=== PATIENT | female | born 1965 | race African-American/Black ===

== ENCOUNTER → 2017-05-27 | Outpatient (CLI) | payer MEDICAID | END | disposition home or self-care (01) | LOC: CARD 10:25 | PROVIDERS: ATTEND Family Medicine | DX: R29.898 Other symptoms and signs involving the musculoskeletal system (principal) | CPT/HCPCS: 95885; 95908 ==

== ENCOUNTER 2020-05-21 17:14 | Emergency (ER) | payer MEDICAID ==
[~2020-05-21] VITALS: Ht 162.6 cm; Wt 93.0 kg
[2020-05-21] MEDS ORDERED: OXYcodone/APAP 7.5/325MG TABLET ONE (19:52)
[2020-05-21 19:56] VITALS: BP 168/72
[2020-05-21] MEDS ORDERED: OXYcodone/APAP 7.5/325MG TABLET PO ONE (20:00)
== END 2020-05-21 20:36 | disposition home or self-care (01) ==
LOC: ED 19:55
DX: S83.92XA Sprain of unspecified site of left knee, initial encounter (principal); S39.012A Strain of muscle, fascia and tendon of lower back, initial encounter; M25.562 Pain in left knee; Z90.49 Acquired absence of other specified parts of digestive tract; X58.XXXA Exposure to other specified factors, initial encounter; Y93.89 Activity, other specified; Y92.89 Other specified places as the place of occurrence of the external cause; Y99.8 Other external cause status
CPT/HCPCS: 29505; 72110; 99284

== ENCOUNTER 2020-06-12 13:27 | Emergency (ER) | payer MEDICAID ==
[~2020-06-12] VITALS: Ht 162.6 cm; Wt 93.0 kg
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
--- NOTE | 2020-06-12 14:09 | NUR ---
PT IN BED WITH NO SIGNS OR SYMPTOMS OF ACUTE DISTRESS NOTED RESPIRATIONS EVEN AND UNLABORED MD AT BEDSIDE TO ASSESS.
--- NOTE | 2020-06-12 14:14 | NUR ---
REPORT RECEIVED, CARE ASSUMED.
[2020-06-12] MEDS ORDERED: HYDROcodone/APAP 5/325 TABLET ONE (14:16)
[2020-06-12] MEDS ORDERED: ONDANSETRON ODT 4 MG ONE (14:20)
--- NOTE | 2020-06-12 14:22 | NUR ---
PT MEDICATED FOR 9/10 PAIN ORDERED. PT WITH C/O "NAUSEA AND BEING HUNGRY" DISCUSSED WITH DR AMOS. ORDER FOR ZOFRAN RECEIVED. PT UPDATED ON POC, IE: TESTING. UNDERSTANDING VERBALIZED. NO OTHER NEEDS EXPRESSED AT THIS TIME.
--- NOTE | 2020-06-12 14:27 | NUR ---
Kamar armando in [facility] - 06/12/20 at 1428 by CUAUHTEMOC REPORT RECEIVED FROM ENDOSCOPY NURSE. PT TO BE RETURNED TO ROOM.
[2020-06-12] MEDS ORDERED: HYDROcodone/APAP 5/325 TABLET PO PRN (14:30)
--- NOTE | 2020-06-12 14:36 | NUR ---
REPORT TO DALTON BRUSH
[2020-06-12] MEDS ORDERED: ACETAMINOPHEN 500 MG TABLET ONE (15:54)
--- NOTE | 2020-06-12 15:58 | NUR ---
pt complaining of 8/10 pain, medicated per emar. pt provided with water and crackers. She is watching tv and resting on the gurney.
[2020-06-12] MEDS ORDERED: CARV12.52 PO (16:00)
[2020-06-12] MEDS ORDERED: ONDANSETRON ODT 4 MG PO ONE (16:00)
[2020-06-12] MEDS ORDERED: ACETAMINOPHEN 500 MG TABLET PO ONE (16:00)
[2020-06-12] MEDS ORDERED: TRAZ-175 PO (16:01)
[2020-06-12] MEDS ORDERED: CITA20TA9 PO (16:02)
--- NOTE | 2020-06-12 16:04 | NUR ---
pt requested to speak with vp digital marketing social media and crm. Contacted Milana who advised she would come speak with the pt.
--- NOTE | 2020-06-12 16:23 | NUR ---
pt spoke with leon from social media senior associate. pt to be d/c
[2020-06-12 16:32] VITALS: BP 189/96
--- NOTE | 2020-06-12 16:33 | NUR ---
Patient/Caregiver given discharge instructions and they have confirmed that they understand the instructions. Patient ambulatory with steady gait.
== END 2020-06-12 16:35 | disposition home or self-care (01) ==
LOC: ED 14:30
DX: S09.90XA Unspecified injury of head, initial encounter (principal); R07.89 Other chest pain; M54.2 Cervicalgia; I10 Essential (primary) hypertension; Z90.49 Acquired absence of other specified parts of digestive tract; Y04.8XXA Assault by other bodily force, initial encounter; Y93.89 Activity, other specified; Y92.488 Other paved roadways as the place of occurrence of the external cause; Y99.8 Other external cause status
CPT/HCPCS: 70450; 71101; 72125; 99285; Q0162

== ENCOUNTER 2020-06-18 12:47 | Emergency (ER) | payer MEDICAID ==
[~2020-06-18] VITALS: Ht 167.6 cm; Wt 83.6 kg
[~2020-06-18 12:47] MED LIST: CARV12.52 PO; CITA20TA9 PO; TRAZ-175 PO
--- NOTE | 2020-06-18 14:11 | NUR ---
commission broker: pt from lobby to room 27
[2020-06-18 14:27] LABS: BASOPHILS % (AUTO) 1 % (0-1); EOSINOPHILS % (AUTO) 1 % (1-7); LYMPHOCYTES % (AUTO) 30 % (22-44); MEAN CORPUSCULAR HEMOGLOBIN 29.1 pg (27.0-34.8); MEAN CORPUSCULAR HGB CONC 32.3 g/dL (32.4-35.8); MEAN PLATELET VOLUME 9.1 fL (7.4-10.4); MONOCYTES % (AUTO) 6 % (2-9); NEUTROPHILS % (AUTO) 62 % (42-75); PLATELET COUNT 221 x10^3/uL (130-400); RED BLOOD COUNT 4.82 x10^6/uL (3.82-5.3); RED CELL DISTRIBUTION WIDTH 15.3 % (9.6-15.2)
[2020-06-18 14:29] LABS: MD NO
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
[2020-06-18 14:39] LABS: ALBUMIN 3.5 g/dL (3.4-5.0); ANION GAP 5 mmol/L (5-15); CALCIUM 9.1 mg/dL (8.5-10.1); CHLORIDE 107 mmol/L (98-107)
[2020-06-18 14:47] LABS: CREATININE 0.71 mg/dL (0.55-1.02); TROPONIN I < 0.015 ng/mL (0.000-0.045)
[2020-06-18] MEDS ORDERED: ACETAMINOPHEN 500 MG TABLET PO ONE (15:30)
[2020-06-18 16:13] VITALS: BP 182/76
--- NOTE | 2020-06-18 16:15 | NUR ---
pt walked out self with steady gait. discuess rx, pt refused tylenol. if s&s worsen return to the er
== END 2020-06-18 16:20 | disposition home or self-care (01) ==
LOC: ED 16:05
DX: G44.329 Chronic post-traumatic headache, not intractable (principal); R07.89 Other chest pain; I10 Essential (primary) hypertension; R42 Dizziness and giddiness; R05 Cough; R50.9 Fever, unspecified; M54.5 Low back pain
CPT/HCPCS: 36415; 70450; 71045; 80048; 82040; 84484; 85025; 93005; 99285